=== PATIENT | female | born 1995 | race American Indian/Alaskan Native ===

== ENCOUNTER 2019-02-26 08:28 | Emergency (ER) | payer OTHER ==
--- NOTE | 2019-02-26 09:20 | Emergency Department Report ---
ED Abdominal Pain HPI - General Chief Complaint: Abdominal Pain Stated Complaint: N/V/EXTREME FATIGUE/ABD PAIN Time Seen by Provider: 02/26/19 09:15 Source: patient Mode of arrival: Ambulatory Limitations: No Limitations - History of Present Illness Initial Comments: 23-year-old -[place] female presents to the emergency room complaining of abdominal pain nausea vomiting since last week. Patient states that she was seen in urgent care on Friday and was treated for bacterial infection of the year but was then called back and was told that she did not have a urinary tract infection. Patient states she was seen in urgent care yesterday and told to come to the ER for possible dehydration. Patient denies any vaginal discharge she denies any dysuria. Patient does admit to vaginal spotting that started last night but then stopped. Patient reports she has nausea with meals and has had dry heaving. Patient reports she last truly vomited was on Friday. Patient does admit to fatigue and abdominal pressure 1 week. Patient has no past m edical history currently takes no medications on a daily basis and has no known drug allergies. - Related Data Allergies Allergy/AdvReac Type Severity Reaction Status Date / Time banana Allergy Shortness Verified 02/26/19 08:34 of Breath Milk Containing Products Allergy Hives Verified 02/26/19 08:34 shellfish derived Allergy Anaphylaxis Verified 02/26/19 08:34 ED Review of Systems ROS: Stated complaint: N/V/EXTREME FATIGUE/ABD PAIN Other details as noted in HPI ED Past Medical Hx - Past Medical History Previous Medical History?: No - Surgical History Past Surgical History?: No - Social History Smoking Status: Never Smoker Substance Use Type: Alcohol, Marijuana ED Physical Exam - General Limitations: No Limitations ED Course Vital Signs 02/26/19 08:43 Temperature 98.4 F Pulse Rate 95 H Respiratory 16 Rate Blood Pressure 129/86 O2 Sat by Pulse 100 Oximetry ED Medical Decision Making - Lab Data Result diagrams: 02/26/19 09:25 02/26/19 09:25 Laboratory Tests 02/26/19 02/26/19 02/26/19 09:20 09:25 09:25 WBC 5.2 RBC 4.95 Hgb 14.3 Hct 42.9 MCV 87 MCH 29 MCHC 33 RDW 14.4 Plt Count 161 Lymph % (Auto) 20.9 Grainger % (Auto) 6.9 Eos % (Auto) 1.2 Baso % (Auto) 0.5 Lymph # 1.1 L Grainger # 0.4 Eos # 0.1 Baso # 0.0 Seg Neutrophils % 70.5 H Seg Neutrophils # 3.7 Sodium 137 Potassium 3.9 Chloride 101.9 Carbon Dioxide 24 Anion Gap 15 BUN 9 Creatinine 0.9 Estimated GFR > 60 BUN/Creatinine Ratio 10 Glucose 91 Calcium 9.0 Total Bilirubin 0.60 AST 12 ALT 8 Alkaline Phosphatase 63 Total Protein 8.0 Albumin 4.3 Albumin/Globulin Ratio 1.2 HCG, Qual Urine Color Yellow Urine Turbidity Clear Urine pH 6.0 Ur Specific [place] 1.015 Urine Protein 30 mg/dl Urine Glucose (UA) Negative Urine Ketones Trace Urine Blood Negative Urine Nitrite Negative Ur Reducing Substances Not Reportable Urine Bilirubin Negative Urine Ictotest Not Reportable Urine Urobilinogen < 2.0 Ur Leukocyte Esterase Negative Urine WBC (Auto) < 1.0 Urine RBC (Auto) < 1.0 U Epithel Cells (Auto) < 1.0 Urine Mucus Few 02/26/19 09:25 WBC RBC Hgb Hct MCV MCH MCHC RDW Plt Count Lymph % (Auto) Grainger % (Auto) Eos % (Auto) Baso % (Auto) Lymph # Grainger # Eos # Baso # Seg Neutrophils % Seg Neutrophils # Sodium Potassium Chloride Carbon Dioxide Anion Gap BUN Creatinine Estimated GFR BUN/Creatinine Ratio Glucose Calcium Total Bilirubin AST ALT Alkaline Phosphatase Total Protein Albumin Albumin/Globulin Ratio HCG, Qual Negative Urine Color Urine Turbidity Urine pH Ur Specific [place] Urine Protein Urine Glucose (UA) Urine Ketones Urine Blood Urine Nitrite Ur Reducing Substances Urine Bilirubin Urine Ictotest Urine Urobilinogen Ur Leukocyte Esterase Urine WBC (Auto) Urine RBC (Auto) U Epithel Cells (Auto) Urine Mucus - Medical Decision Making 23-year-old -[place] female presents to the emergency room complaining of abdominal pain nausea vomiting since last week. Patient states that she was seen in urgent care on Friday and was treated for bacterial infection of the year but was then called back and was told that she did not have a urinary tract infection. Patient states she was seen in urgent care yesterday and told to come to the ER for possible dehydration. Patient denies any vaginal discharge she denies any dysuria. Patient does admit to vaginal spotting that started last night but then stopped. Patient reports she has nausea with meals and has had dry heaving. Patient reports she last truly vomited was on Friday. Patient does admit to fatigue and abdominal pressure 1 week. Patient has no past medic al history currently takes no medications on a daily basis and has no known drug allergies. Labs ultrasound and urine are all negative. Patient will be referred to [facility] for further evaluation. Patient to take Tylenol or ibuprofen as needed for pain. Critical care attestation.: If time is entered above; I have spent that time in minutes in the direct care of this critically ill patient, excluding procedure time. ED Disposition Clinical Impression: Nonspecific abdominal pain Disposition: DC-01 TO HOME OR SELFCARE Is pt being admited?: No Does the pt Need Aspirin: No Condition: Stable Instructions: Abdominal Pain (ED) Additional Instructions: Ultrasounds negative for any acute findings, labs are negative for any acute findings. Cultures of the vaginal area was negative for any acute findings. Urinalysis negative for any acute findings. Please follow up with [facility] I have listed one below for your convenience. Referrals: PRIMARY CARE [Primary Care Provider] - 3-5 Days Your,Provider [Other] - 3-5 Days [facility] [Provider Group] - 3-5 Days Forms: Work/School Release Form(ED)
[2019-02-26 09:41] LABS: Basophils % (Auto) 0.5 % (0.0-1.8); Eosinophils # (Auto) 0.1 K/mm3 (0.0-0.4); Eosinophils % (Auto) 1.2 % (0.0-4.3); Hematocrit 42.9 % (30.3-42.9); Hemoglobin 14.3 gm/dl (10.1-14.3); Lymphocytes # (Auto) 1.1 K/mm3 (1.2-5.4); Lymphocytes % (Auto) 20.9 % (13.4-35.0); Mean Corpuscular HGB Conc 33 % (30-34); Mean Corpuscular Volume 87 fl (79-97); Monocytes # (Auto) 0.4 K/mm3 (0.0-0.8); Monocytes % (Auto) 6.9 % (0.0-7.3); Platelet Count 161 K/mm3 (140-440); Red Blood Count 4.95 M/mm3 (3.65-5.03); Red Cell Distribution Width 14.4 % (13.2-15.2)
[2019-02-26 09:57] LABS: Mucus,Urine FEW /HPF; RBC,Urine < 1.0 /HPF (0.0-6.0); WBC,Urine < 1.0 /HPF (0.0-6.0)
[2019-02-26 10:01] LABS: Alanine Aminotransferase 8 units/L (7-56); Albumin 4.3 g/dL (3.9-5); BUN/Creatinine Ratio 10; Blood Urea Nitrogen 9 mg/dL (7-17); Hemolysis Index 5
[2019-02-26 10:02] LABS: Bilirubin,Urine Negative (Negative); Color,Urine Yellow (Yellow)
[2019-02-26 10:03] LABS: Blood,Urine Negative (Negative); Urobilinogen,Urine < 2.0 mg/dL (<2.0)
[2019-02-26] MEDS ORDERED: NACL 0.9% 1000 ML 1,000 ML IV ONE (10:14)
--- NOTE | 2019-02-26 12:40 | Ultrasound Report ---
CLINICAL DATA: pelvic pain and pressure TECHNICAL DATA: Real-time imaging of the pelvic structures were performed along with Doppler imaging of the adnexa FINDINGS: The uterus is of normal size and echogenicity. Uterus measures 7.2 x 3.5 x 6.1 cm. There are no uteri ne masses. Endometrial thickness measures 0.9 cm. The right and left ovaries are of symmetric size and echogenicity. There are no ovarian or adnexal ma sses. Doppler imaging demonstrates normal vascular flow to both ovaries. There is no significant quantity of free fluid dependently within the pelvis. IMPRESSION: Unremarkable routine ultrasound. Please see comments WOMEN OF REPRODUCTIVE AGE: 1. Cysts <=3 cm: Normal physiologic findings; at the discretion of the interpreting physician whether or not to describe them in the imaging report; do not need follow-up. 2. Cysts >3 and <=5 cm: Should be described in the imaging report with a statement that they are almo st certainly benign; do not need follow-up. 3. Cysts >5 and <=7 cm: Should be described in the imaging report with a statement that they are almo st certainly benign; yearly follow-up with US recommended. 4. Cysts >7 cm: Since these may be difficult to assess completely with US, further imaging with magne tic resonance (MR) or surgical evaluation should be considered. POSTMENOPAUSAL WOMEN: 1. Cysts <=1 cm: Are clinically inconsequential; at the discretion of the interpreting physician whet her or not to describe them in the imaging report; do not need follow-up. 2. Cysts >1 and <=7 cm: Should be described in the imaging report with statement that they are almost certainly benign; yearly follow-up, at least initially, with US recommended. Some practices may opt to increase the lower size threshold for follow-up from 1 cm to as high as 3 cm. One may opt to xenia nue follow-up annually or to decrease the frequency of follow-up once stability or decrease in size h as been confirmed. Cysts in the larger end of this range should still generally be followed on a regu lar basis. 3. Cysts >7 cm: Since these may be difficult to assess completely with US, further imaging with MR or surgical evaluation should be considered. Signer Name: Venu Castillo MD Signed: 02/26/2019 12:35 PM Workstation Name: [a][email or web address]
[2019-02-26 13:25] VITALS: BP 110/69
== END 2019-02-26 13:24 | disposition home or self-care (01) ==
LOC: ED 08:28
DX: R10.9 Unspecified abdominal pain (principal); R11.2 Nausea with vomiting, unspecified; F12.10 Cannabis abuse, uncomplicated; Z91.011 Allergy to milk products; Z91.013 Allergy to seafood; Z91.018 Allergy to other foods
CPT/HCPCS: 36415; 76830; 76856; 80053; 81001; 84703; 85025; 87210; 87591; 96360; 99284; J7030